=== PATIENT | female | born 2000 | race Two or more races ===

== ENCOUNTER 2022-07-04 16:27 | Observation (INO) | payer BC ==
[~2022-07-04] VITALS: Ht 157.5 cm; Wt 77.1 kg
[2022-08-24 10:58] LABS: Urine Bacteria FEW /hpf (None Seen); Urine Blood Negative /uL (Negative); Urine Specific Gravity 1.014 (1.001-1.035); Urine WBC 4 /hpf (0 - 5)
[2022-08-24 11:40] LABS: Alcohol, Urine < 3.0 mg/dL (0-10); Amphetamine Screen, Urine NEGATIVE (NEGATIVE); Barbiturate Scree,Urine NEGATIVE (NEGATIVE); Benzodiazephine Screen, Urine NEGATIVE (NEGATIVE); Cannabinoid Screen, Urine NEGATIVE (NEGATIVE); Cocaine Screen, Urine NEGATIVE (NEGATIVE); Opiate Scree,Urine NEGATIVE (NEGATIVE); Phencyclidine Screen, Urine NEGATIVE (NEGATIVE)
== END 2022-08-24 12:05 | disposition home or self-care (01) ==
LOC: LDRP 08-24 09:27 → UNDOADMOB 08-24 09:27 → LDRP 08-24 09:34 → UNDODISOB 08-24 12:05
PROVIDERS: ADMIT Obstetrics & Gynecology; ATTEND Obstetrics & Gynecology
DX: O62.9 Abnormality of forces of labor, unspecified (principal); Z3A.40 40 weeks gestation of pregnancy
CPT/HCPCS: 59025; 76805; 80307; 81001; 81002; 84112; 94760; G0378; Q0114

== ENCOUNTER 2022-08-25 02:23 | Observation (INO) | payer BC | END 2022-08-25 03:41 | disposition home or self-care (01) | LOC: LDRP 02:23 | PROVIDERS: ADMIT Obstetrics & Gynecology; ATTEND Obstetrics & Gynecology | DX: O62.9 Abnormality of forces of labor, unspecified (principal); Z3A.40 40 weeks gestation of pregnancy | CPT/HCPCS: 59025; 81002; G0378 ==

== ENCOUNTER 2022-08-25 18:21 | Inpatient (IN) | payer BC ==
[~2022-08-25] VITALS: Ht 157.5 cm; Wt 77.1 kg
[2022-08-25] MEDS ORDERED: WITCH HAZEL-GLYCERIN PAD TOP PRN (19:00)
[2022-08-25] MEDS ORDERED: LIDOCAINE 2%HCL (LOCAL ANESTH.) INJ 20ML MDV IJ PRN (19:00)
[2022-08-25] MEDS ORDERED: PROMETHAZINE HCL 25 MG/ML 1ML IV PRN (19:00)
[2022-08-25] MEDS ORDERED: PHISODERM TOP SOLN 240ML BTL TOP PRN (19:00)
[2022-08-25] MEDS ORDERED: BUTORPHANOL TARTRATE 2 MG/1 ML VIAL IV PRN ×2 (19:00)
[2022-08-25] MEDS ORDERED: DERMOPLAST 60ML BOTTLE TOP PRN (19:00)
[2022-08-25 19:18] LABS: Basophils # (auto) 0.1 10 ^3/uL (0-0.2); Basophils % (auto) 0.6 % (0.0-2.0); Eosinophils # (auto) 0 10 ^3/uL (0-0.8); Eosinophils % (auto) 0.2 % (0.0-7.0); Hematocrit 33.9 % (36.0-46.0); Hemoglobin 11.2 g/dL (12.2-16.2); Lymphocytes # (auto) 1.8 10 ^3/uL (0.4-5.4); Lymphocytes % (auto) 14.9 % (10.0-50.0); Mean Corpuscular Hemoglobin 28.1 pg (28.0-32.0); Mean Corpuscular Hgb Conc. 33.2 g/dL (32.0-36.0); Mean Corpuscular Volume 84.8 fL (80.0-100.0); Monocytes # (auto) 0.6 10 ^3/uL (0-1.3); Monocytes % (auto) 5.3 % (0.0-12.0); Neutrophils # (auto) 9.6 10 ^3/uL (1.6-8.6); Red Blood Cells 3.99 10^6/uL (4.0-5.20); Red Cell Distribution Width 14.5 % (11.8-14.3); White Blood Cell 12.1 10^3/uL (4.4-10.8)
[2022-08-25 19:36] LABS: Albumin 2.8 g/dL (3.4-5.0); BUN/Creatinine Ratio 7.4 (10.0-20.0); Calcium 8.7 mg/dL (8.5-10.1); Potassium 3.3 mmol/L (3.5-5.1)
[2022-08-25 19:41] LABS: Urine Bacteria NONE SEEN /hpf (None Seen); Urine Blood 3+ /uL (Negative); Urine Specific Gravity 1.005 (1.001-1.035); Urine WBC 9 /hpf (0 - 5)
[2022-08-25 19:46] LABS: Bilirubin, Total 0.4 mg/dL (0.2-1.0); Total Protein 6.8 g/dL (6.4-8.2)
[2022-08-25 19:49] LABS: INR 0.9 (0.9-1.15); Partial Thromboplastin Time 28.9 sec (24.6-33.4)
[2022-08-25 19:53] LABS: Alcohol, Urine < 3.0 mg/dL (0-10); Amphetamine Screen, Urine NEGATIVE (NEGATIVE); Barbiturate Scree,Urine NEGATIVE (NEGATIVE); Benzodiazephine Screen, Urine NEGATIVE (NEGATIVE); Cannabinoid Screen, Urine NEGATIVE (NEGATIVE); Cocaine Screen, Urine NEGATIVE (NEGATIVE); Opiate Scree,Urine NEGATIVE (NEGATIVE); Phencyclidine Screen, Urine NEGATIVE (NEGATIVE)
[2022-08-25] MEDS ORDERED: ePHEDrine SULFATE 50 MG/ML AMP IV ONE (20:30)
[2022-08-25] MEDS ORDERED: ROPIVACAINE HCL 200 ML EPI SCH (20:30)
[2022-08-25] MEDS ORDERED: LIDOCAINE 1%-Mpf/Epinephrine 1:200,000 IJ ONE (20:30)
[2022-08-25] MEDS ORDERED: NALOXONE HCL 0.4 MG/ML VIAL IV ONE (20:30)
[2022-08-25] MEDS ORDERED: LACTATED RINGER'S 1,000 ML IV ONE (20:30)
[2022-08-25] MEDS: LACTATED RINGER'S 1,000 ML IV SCH (21:32)
[2022-08-26] MEDS: LACTATED RINGER'S 1,000 ML IV SCH ×2 (01:02→06:19)
[2022-08-26] MEDS ORDERED: LACT. RINGERS/OXYTOCIN 20UNITS 500 ML IV ONE ×2 (04:00→04:30)
[2022-08-26] MEDS ORDERED: METHYLERGONOVINE MALEATE 0.2 MG/ML AMP IM ONE (04:15)
[2022-08-26] MEDS ORDERED: LACT. RINGERS/OXYTOCIN 20UNITS 1,000 ML IV SCH (06:00)
[2022-08-26] MEDS ORDERED: TERBUTALINE SULFATE 1 MG/ML 1ML VIAL SC PRN (06:00)
[2022-08-26] MEDS ORDERED: IBUPROFEN 600 MG TAB PO PRN (09:15)
[2022-08-26] MEDS ORDERED: ONDANSETRON ODT 4 MG TAB PO PRN ×2 (09:15)
[2022-08-26] MEDS ORDERED: ACETAMINOPHEN 325 MG TAB PO PRN ×2 (09:15)
[2022-08-26] MEDS: IBUPROFEN 600 MG TAB PO PRN ×2 (09:32→19:08)
[2022-08-26 10:01] VITALS: BP 105/62
[2022-08-26 11:19] VITALS: BP 112/68
[2022-08-26 15:30] VITALS: BP 100/56
[2022-08-26 18:57] VITALS: BP 95/51
[2022-08-26] MEDS ORDERED: DOCUSATE SOD 100 MG CAP PO SCH (22:00)
[2022-08-26 22:57] VITALS: BP 97/55
[2022-08-27 03:11] VITALS: BP 98/56
[2022-08-27 07:00] VITALS: BP 93/52
[2022-08-27] MEDS: IBUPROFEN 600 MG TAB PO PRN (09:15)
[2022-08-27 11:03] VITALS: BP 100/54
[2022-08-28 08:06] LABS: RPR Non Reactive (Non Reactive)
== END 2022-08-27 12:20 | disposition home or self-care (01) | DRG 807 ==
LOC: UNDOADMOB 18:21 → LDRP 18:21 → INTOOBSV 18:50 → NUR 18:50 → OBSVTOIN 18:50 → LDRP 19:31
PROVIDERS: ADMIT Obstetrics & Gynecology; ATTEND Obstetrics & Gynecology
PROC: 10E0XZZ Delivery of Products of Conception, External Approach (ICD-10-PCS; principal; 2022-08-26)
PROC: 0KQM0ZZ Repair Perineum Muscle, Open Approach (ICD-10-PCS; 2022-08-26)
PROC: 3E0R3BZ Introduction of Anesthetic Agent into Spinal Canal, Percutaneous Approach (ICD-10-PCS; 2022-08-26)
PROC: 00HU33Z Insertion of Infusion Device into Spinal Canal, Percutaneous Approach (ICD-10-PCS; 2022-08-26)
DX: O48.0 Post-term pregnancy (principal); Z37.0 Single live birth; O70.1 Second degree perineal laceration during delivery; Z3A.40 40 weeks gestation of pregnancy
CPT/HCPCS: 36415; 59025; 59409; 62282; 80053; 80307; 81001; 81002; 85025; 85610; 85730; 86592; 86850; 86900; 86901; 94760; 96360; 96361; 96365; 96366; 96374; G0378; J2590

== ENCOUNTER 2024-02-12 14:52 | Inpatient (IN) | payer BC ==
[~2024-02-12] VITALS: Ht 157.5 cm; Wt 78.5 kg
[2024-02-12] MEDS ORDERED: BUTORPHANOL TARTRATE 2 MG/1 ML VIAL IV PRN ×2 (15:30)
[2024-02-12] MEDS ORDERED: NALOXONE HCL 0.4 MG/ML VIAL IV ONE (15:45)
[2024-02-12] MEDS ORDERED: LIDOCAINE HCL 2 %PF INJ 10ML AMP IJ ONE (15:45)
[2024-02-12] MEDS: PENICILLIN G POT 5MIL/D5 50ML 50 ML IV ONE (15:59)
[2024-02-12] MEDS: LACTATED RINGER'S 1,000 ML IV SCH (16:00)
[2024-02-12] MEDS: PHISODERM TOP SOLN 240ML BTL TOP PRN (16:01)
[2024-02-12] MEDS: DERMOPLAST 60ML BOTTLE TOP PRN (16:01)
[2024-02-12] MEDS: WITCH HAZEL-GLYCERIN PAD TOP PRN (16:01)
[2024-02-12 16:08] LABS: Basophils # (auto) 0 10 ^3/uL (0-0.2); Basophils % (auto) 0.3 % (0.0-2.0); Eosinophils # (auto) 0 10 ^3/uL (0-0.8); Eosinophils % (auto) 0.5 % (0.0-7.0); Hematocrit 34.2 % (36.0-46.0); Hemoglobin 11.9 g/dL (12.2-16.2); Lymphocytes # (auto) 1.9 10 ^3/uL (0.4-5.4); Lymphocytes % (auto) 17.9 % (10.0-50.0); Mean Corpuscular Hemoglobin 30.1 pg (28.0-32.0); Mean Corpuscular Hgb Conc. 34.9 g/dL (32.0-36.0); Mean Corpuscular Volume 86.1 fL (80.0-100.0); Monocytes # (auto) 0.6 10 ^3/uL (0-1.3); Monocytes % (auto) 5.3 % (0.0-12.0); Neutrophils # (auto) 7.9 10 ^3/uL (1.6-8.6); Nucleated Red Blood Cells % 0.1 %; Platelet Count (auto) 172 10^3/uL (140-450); Red Blood Cells 3.97 10^6/uL (4.0-5.20); Red Cell Distribution Width 13.5 % (11.8-14.3); White Blood Cell 10.4 10^3/uL (4.4-10.8)
[2024-02-12 16:25] LABS: Amphetamine Screen, Urine Neg (NEGATIVE); Barbiturate Scree,Urine Neg (NEGATIVE); Benzodiazephine Screen, Urine Neg (NEGATIVE); Cannabinoid Screen, Urine Neg (NEGATIVE); Cocaine Screen, Urine Neg (NEGATIVE); Opiate Scree,Urine Neg (NEGATIVE); Phencyclidine Screen, Urine Neg (NEGATIVE)
[2024-02-12 16:26] LABS: Alanine Aminotransferase 10 U/L (7-40); Alkaline Phosphatase 205 U/L (46-116); Anion Gap 10 (5-15); Aspartate Aminotransferase 17 U/L (13-40); Bilirubin, Total 0.5 mg/dL (0.2-1.0); Calcium 9.4 mg/dL (8.7-10.4); Carbon Dioxide 20 mmol/L (20-31); Chloride 108 mmol/L (98-107); Glucose 75 mg/dL (74-106); Potassium 3.6 mmol/L (3.5-5.1); Sodium 138 mmol/L (136-145); Total Protein 6.7 g/dL (5.7-8.2)
[2024-02-12 16:27] LABS: BUN/Creatinine Ratio 9.4 (10.0-20.0); Blood Urea Nitrogen < 5 mg/dL (9-23)
[2024-02-12 16:32] LABS: Urine Bacteria MANY /hpf (None Seen); Urine Blood Negative /uL (Negative); Urine Clarity Clear (Clear); Urine Color Light-Yellow (Yellow); Urine Protein, UAD Negative (Negative); Urine Specific Gravity 1.009 (1.001-1.035); Urine Urobilinogen Normal (Negative); Urine WBC 3 /hpf (0 - 5); Urine pH 6.5 (5.0-9.0)
[2024-02-12 16:48] LABS: INR 0.98 (0.9-1.15); Partial Thromboplastin Time 28.8 SEC (24.5-34.5); Prothrombin Time 10.4 sec (9.3-11.8)
[2024-02-12] MEDS: fentaNYL CITRATE 100 MCG/2 ML VL IV ONE (17:03)
[2024-02-12] MEDS: ROPIVACAINE HCL 200 ML ONE (17:04)
[2024-02-12] MEDS: ePHEDrine SULFATE 50 MG/ML AMP IV ONE (17:14)
[2024-02-12] MEDS: PENICILLIN G POTASSIUM 2,500,000 UNITS in D5W 5% 50 ML IV SCH (21:04)
[2024-02-12] MEDS: MINERAL OIL TOPICAL 10ml TOP ONE (22:14)
[2024-02-12] MEDS: CARBOPROST TROMETHAMINE 250 MCG/1ML VIAL IM ONE (22:29)
[2024-02-12] MEDS: METHYLERGONOVINE MALEATE 0.2 MG/ML AMP IM ONE (22:44)
[2024-02-12] MEDS: LACT. RINGERS/OXYTOCIN 20UNITS 500 ML IV ONE ×2 (22:46→23:32)
[2024-02-12 23:27] LABS: Basophils # (auto) 0 10 ^3/uL (0-0.2); Basophils % (auto) 0.2 % (0.0-2.0); Eosinophils # (auto) 0 10 ^3/uL (0-0.8); Hematocrit 32.7 % (36.0-46.0); Lymphocytes # (auto) 0.9 10 ^3/uL (0.4-5.4); Mean Corpuscular Hemoglobin 29.4 pg (28.0-32.0); Mean Corpuscular Hgb Conc. 33.8 g/dL (32.0-36.0); Mean Corpuscular Volume 87.1 fL (80.0-100.0); Monocytes # (auto) 0.5 10 ^3/uL (0-1.3); Neutrophils % (auto) 85.8 % (37.0-80.0); Platelet Count (auto) 143 10^3/uL (140-450); Red Blood Cells 3.76 10^6/uL (4.0-5.20); Red Cell Distribution Width 13.5 % (11.8-14.3); White Blood Cell 10.5 10^3/uL (4.4-10.8)
[2024-02-12] MEDS: ONDANSETRON HCL 4 MG/2 ML VIAL ONE (23:38)
[2024-02-12] MEDS: ONDANSETRON HCL 4 MG/2 ML VIAL IV PRN (23:38)
[2024-02-12] MEDS: ceFAZolin 2 GM/D5W50ml 50 ML IV ONE (23:38)
[2024-02-12] MEDS: LIDOCAINE 2%HCL (LOCAL ANESTH.) INJ 20ML MDV IJ PRN (23:44)
[2024-02-12 23:46] LABS: INR 1.02 (0.9-1.15); Partial Thromboplastin Time 29.1 SEC (24.5-34.5); Prothrombin Time 10.8 sec (9.3-11.8)
[2024-02-13] MEDS ORDERED: PREN28CA PO (02:53)
[2024-02-13] MEDS ORDERED: CARB1CHW PO (02:53)
[2024-02-13] MEDS ORDERED: IBU600T PO (02:53)
[2024-02-13] MEDS ORDERED: DOCU-265 PO (02:53)
[2024-02-13 07:00] VITALS: BP 89/54; PULSE 81; RESP 16; TEMP 99.1; O2SAT 97
[2024-02-13] MEDS: ACETAMINOPHEN 325 MG TAB PO PRN (07:20)
[2024-02-13] MEDS: PRENATAL VITAMIN TAB PO SCH (10:14)
[2024-02-13 10:52] LABS: Basophils # (auto) 0 10 ^3/uL (0-0.2); Basophils % (auto) 0.2 % (0.0-2.0); Eosinophils # (auto) 0 10 ^3/uL (0-0.8); Eosinophils % (auto) 0.1 % (0.0-7.0); Hematocrit 29.6 % (36.0-46.0); Hemoglobin 10.1 g/dL (12.2-16.2); Lymphocytes # (auto) 1.4 10 ^3/uL (0.4-5.4); Lymphocytes % (auto) 12.7 % (10.0-50.0); Mean Corpuscular Hemoglobin 29.5 pg (28.0-32.0); Mean Corpuscular Hgb Conc. 34.1 g/dL (32.0-36.0); Mean Corpuscular Volume 86.4 fL (80.0-100.0); Monocytes # (auto) 0.4 10 ^3/uL (0-1.3); Monocytes % (auto) 3.2 % (0.0-12.0); Neutrophils # (auto) 9.2 10 ^3/uL (1.6-8.6); Neutrophils % (auto) 83.8 % (37.0-80.0); Platelet Count (auto) 185 10^3/uL (140-450); Red Blood Cells 3.43 10^6/uL (4.0-5.20)
[2024-02-13 11:00] VITALS: BP 89/53; PULSE 99; RESP 20; TEMP 97.9; O2SAT 99
[2024-02-13] MEDS: IBUPROFEN 600 MG TAB PO PRN (13:22)
[2024-02-13 15:00] VITALS: BP 88/53; PULSE 90; RESP 16; TEMP 98.6; O2SAT 97
[2024-02-13 19:00] VITALS: BP 87/52; PULSE 75; RESP 16; TEMP 98.2; O2SAT 98
[2024-02-13] MEDS: DOCUSATE SOD 100 MG CAP PO SCH (21:37)
[2024-02-13 23:00] VITALS: BP 81/53; PULSE 62; RESP 16; TEMP 98; O2SAT 98
[2024-02-14 03:00] VITALS: PULSE 70; RESP 16; TEMP 98.1; O2SAT 98
[2024-02-14 06:45] VITALS: BP 86/48; PULSE 71; RESP 18; TEMP 98.1; O2SAT 98
[2024-02-14 07:06] LABS: RPR Non Reactive (Non Reactive)
[2024-02-14 10:45] VITALS: BP 96/55; PULSE 64; RESP 18; TEMP 98.3; O2SAT 98
[2024-02-17 13:07] LABS: Treponema Pallidum Ab LC Non Reactive (Non Reactive)
== END 2024-02-14 13:00 | disposition home or self-care (01) | DRG 807 ==
LOC: LDRP 14:52 → OBSVTOIN 15:20 → LDRP 15:24
PROVIDERS: ADMIT Obstetrics & Gynecology; ATTEND Obstetrics & Gynecology
PROC: 10E0XZZ Delivery of Products of Conception, External Approach (ICD-10-PCS; principal; 2024-02-12)
PROC: 0KQM0ZZ Repair Perineum Muscle, Open Approach (ICD-10-PCS; 2024-02-12)
PROC: 00HU33Z Insertion of Infusion Device into Spinal Canal, Percutaneous Approach (ICD-10-PCS; 2024-02-12)
PROC: 3E0R3BZ Introduction of Anesthetic Agent into Spinal Canal, Percutaneous Approach (ICD-10-PCS; 2024-02-12)
DX: O99.824 Streptococcus B carrier state complicating childbirth (principal); Z37.0 Single live birth; Z3A.39 39 weeks gestation of pregnancy; O70.1 Second degree perineal laceration during delivery; O72.1 Other immediate postpartum hemorrhage
CPT/HCPCS: 36415; 59025; 59409; 62282; 80053; 80307; 81001; 81002; 85025; 85610; 85730; 86592; 86780; 86803; 86850; 86900; 86901; 94760; 96360; 96361; 96365; 96366; 96372; 96374; 96375; G0378; J2405; J2540; J2590; J7060